=== PATIENT | female | born 1950 ===

== ENCOUNTER → 2024-01-26 13:30 | Outpatient (BNVA) | payer MEDICARE, SELFPAY | PROVIDERS: PCP Family Medicine; Referring Provider Family Medicine; Visit Provider Psychiatry & Neurology Neurology | DX: I63.9 Cerebral infarction, unspecified (principal); R53.1 Weakness; R45.86 Emotional lability; G47.10 Hypersomnia, unspecified; R20.3 Hyperesthesia; D32.9 Benign neoplasm of meninges, unspecified | CPT/HCPCS: 99205; G2212 ==

== ENCOUNTER → 2024-09-07 14:09 | Outpatient (BNVA) | payer MEDICARE, SELFPAY | PROVIDERS: PCP Family Medicine; Referring Provider Family Medicine; Visit Provider Psychiatry & Neurology Neurology | DX: I63.9 Cerebral infarction, unspecified (principal); R53.1 Weakness; R45.86 Emotional lability; G47.10 Hypersomnia, unspecified; R20.3 Hyperesthesia; D32.9 Benign neoplasm of meninges, unspecified; Z79.02 Long term (current) use of antithrombotics/antiplatelets; I10 Essential (primary) hypertension | CPT/HCPCS: 99214 ==